=== PATIENT | male | born 1975 | race Caucasian/White ===

== ENCOUNTER 2022-06-29 10:31 | Outpatient (CLI) | payer OTHER ==
[2022-06-29 22:06] VITALS: BP 100/60
--- NOTE | 2022-06-29 22:06 | SLEEP CARE CONSULTATION ---
Information from patient questionnaire entered by Anais Enrique. I have reviewed and concur with the information entered by Anais Enrique. This document represents the service I personally performed and the decisions made by me, Geraldine Joy MD, [facility]. History of Present Illness Service Date and Time: 06/29/2022 1031 Reason for Visit: New patient Chief Complaint: reports: Insomnia, Unrefreshed sleep, Snoring, Excessive daytime sleepiness, Observed pauses in breathing, Fatigue, Frequent awakenings at night Date of Onset: YRS Usual bedtime: 10PM Time it takes to fall asleep: 30MIN DRUG ASSISTED Snores at night: Yes Observed to quit breathing while asleep: Yes Sleeps alone due to snoring: No Number of times waking at night: 1 Reasons for waking at night: reports: Bathroom, Other (UNKOWN) Toss, Turn, or Twitch while sleeping: Yes Recalls having dreams: No Usually gets out of bed at: 645AM Feels refreshed in the morning: Yes Morning headache: No Sleepy or fatigued during the day: Yes Ever fallen asleep while driving: No Takes day naps: No Dreams during day naps: No Prior sleep studies: No Additional HPI information: I had the pleasure of seeing Dr. Alfonso today regarding the possibility of him having a sleep disorder. As you know, he is a 46-year-old gentleman who complains of insomnia, loud snore, observed apneas, unrefreshed sleep, persistent fatigue, and excessive daytime sleepiness. The patient tells me that he normally goes to bed around 10 pm, and it takes him approximately 30 minutes to fall asleep. He takes clonazepam almost nightly. He has been told that he snores loudly and irregularly at night. He has also been observed to stop breathing in his sleep. His bed partner. He can recall waking up on the average of 1 time during the night. Most of the time he wakes up because of having to use the bathroom. He has never awakened because of his own snoring, choking, or having to gasp for air. There is not a lot of tossing and turning in his sleep. He reports having somniloquy (sleep talking) and somnambulism (sleep walking). Generally, he can recall having dreams. In the morning he usually gets up out of the bed around 6:45 a.m. not feeling refreshed nor rested. He usually does not have a morning headache. During the day he complains of feeling sleepy and fatigued. However, his score on [place] Sleep iness Scale is only 5 out of 24. He never has fallen asleep while driving nor has had any accident due to sleepiness. He usually does not take naps during the day. He denies having impaired concentration during the day. No restless leg syndrome symptoms. - Parasomnia Symptoms Ever been unable to move upon waking from sleep: No Walks in sleep: Yes Talks in sleep: Yes Ever acted out dreams in sleep: Yes Ever felt weak in the knees when startled or emotional: No Bothered by creepy, crawly, restless sensations in legs: No Problems with memory or concentration: No Subjective Initial [place] Sleepiness Scale score: 5 (06-26-22) Past Medical History Past Medical History: reports: Anxiety Social History The patient's occupation is a AM. Patient is and lives in . Have you smoked in the past 12 months: No Alcohol use: Yes Alcohol amount and frequency: 1 DRINK DAILY Caffeine use: Yes Caffeine amount and frequency: 16OZ DAILY Family History Family history of sleep disordered breathing: Yes Family Hx Sleep Apnea: Sibling: Snoring, Sleep apnea - Treated Allergies and Home Medications Known drug allergies: No Drug allergies reviewed: Yes Home medication list reviewed: Yes Review of Systems Cardiovascular: denies: high blood pressure, palpitations, chest pain, irregular heart rate or pulse, leg or foot swelling, have to sleep sitting up, other Respiratory: denies: shortness of breath, wheeze, sputum production, chronic cough, other Gastrointestinal: denies: heartburn, difficulty swallowing, nausea, vomitting, diarrhea, abdominal pain, other Urinary: denies: incontinence, frequency, urgency, impotence, other Neurological: denies: headaches, seizure, head trauma, disorientation, speech dysfunction, gait or balance problems, fainting or unconsciousness, other Psychiatric: reports: anxiety Ear/Nose/Throat: denies: nasal congestion, sinus problems, nose bleeds, dry mouth/throat, hoarseness, injury to nose, tonsillectomy, wisdom teeth removed, other Endocrine: denies: thyroid disease, history of goiter, sluggishness, too hot or cold, excessive thirst, increased appetite, increased urination, unexplained weakness, other Musculoskeletal: denies: joint pain, neck pain, back pain, joint swelling, muscle pain or cramping, mobility problems, other Immunologic: denies: sneezing, rash, itching, allergies to food or environment, other Physical Exam Vital signs obtained and entered by: ANAIS Hector MA Blood Pressure: 100/60 (LEFT ARM) Cuff size: regular Heart Rate: 72 O2 Saturation: 98 Height: 5 ft 10 in Weight: 192 lb 9.6 oz Body Mass Index: 27.6 BMI Classification: Overweight Neck circumference: 16.5 Mood/affect: Normal HEENT: No craniofacial malformation Nostrils: patent to airflow Turbinates: normal Septum: midline Mouth and throat: narrow oropharynx Soft palate: normal Hard palate: normal Uvula: normal Uvula visualization: 50% Mallampati Class II Tongue: normal in size Tonsils: small Chin and jaw: normal size and position Neck: normal w/o lymphadenopathy or thyromegaly Heart: regular rate and rhythm Lungs: clear bilaterally Extremities: no edema or clubbing Neurologic: intact Impression and Plan IMPRESSION: 1. Obstructive Sleep Apnea-Hypopnea Syndrome, as suggested by history of loud and irregular snoring, observed cessation of breath while asleep, unrefreshed sleep, and daytime hypersomnolence. Narrow oropharynx is a common predisposing factor for obstructive sleep apnea-hypopnea syndrome. I recommend proceeding to polysomnography to confirm the diagnosis and to assess severity. I informed the patient of what the sleep studies involve and after some discussion, he agreed to proceed. Plan: 1. Schedule polysomnography and return in 1 to 2 weeks after the study to discuss result and initiate therapy. Follow up with Sleep Care in: 1-2 months Plan: in-lab PSG Visit Type: In Office Time Spent with Patient (minutes): 15 Provider Statement: I spent 100% of the Face to Face Visit with the patient with greater than 50% spent counseling the patient and coordination of care.
== END 2022-06-29 10:32 | disposition home or self-care (01) ==
LOC: SC 10:31
PROVIDERS: ATTEND Internal Medicine Pulmonary Disease
DX: R06.83 Snoring (principal); G47.10 Hypersomnia, unspecified; R06.81 Apnea, not elsewhere classified; G47.8 Other sleep disorders
CPT/HCPCS: 99202; 99212

== ENCOUNTER 2022-08-13 20:30 | Outpatient (CLI) | payer OTHER | END 2022-08-13 20:31 | disposition home or self-care (01) | LOC: SC 20:30 | PROVIDERS: ATTEND Internal Medicine Pulmonary Disease | DX: G47.33 Obstructive sleep apnea (adult) (pediatric) (principal); G47.61 Periodic limb movement disorder | CPT/HCPCS: 95810 ==

== ENCOUNTER 2022-08-28 12:54 | Outpatient (CLI) | payer OTHER ==
--- NOTE | 2022-08-28 13:25 | SLEEP CARE CONSULTATION ---
Information from patient questionnaire entered by Caro Enrique. I have reviewed and concur with the information entered by Caro Enrique. This document represents the service I personally performed and the decisions made by , Cindy Leiva ARNP. History of Present Illness Service Date and Time: 08/28/2022 1254 Initial [place] Sleepiness Scale score: 5 (06-26-22) Current [place] Sleepiness Scale score: 7 (08/28/22) Additional HPI information: WILIAM AUGUSTINE returns for follow up and results of the recently performed polysomnography. I explained the pathophysiology behind obstructive sleep apnea. We then spent quite a bit of time discussing different treatment options. For mild obstructive sleep apnea, surgery and oral appliance are alternatives to nasal CPAP therapy but in moderate or severe cases, nasal CPAP is the most effective and reliable treatment. Because apnea is primarily in supine position, then positional management therapy could be effective. Methods discussed such as positioning with pillows, using a T-shirt with tennis balls in the back, or commercial products that have a pillow format on back to prevent supine sleep. I reviewed the impact of weight changes on sleep apnea and strongly recommended losing weight. Patient was cautioned about risks of drowsy driving until sleepiness symptoms resolve. Sleep Study - Results Type of Sleep Study: Home sleep study (COMPLETED 08/13/22) Prior sleep studies: No Polysomnography/Home Sleep Study results: IMPRESSION: The quality of the study is good. The patient had slightly reduced sleep efficiency. The sleep architecture was abnormal for sleep fragmentation and reduced amount of time spent in REM sleep. Respiratory monitoring showed mild obstructive sleep apnea-hypopnea (AHI = 6.0) associated with frequent arousals, oxyhemoglobin desaturation and mild hypoxia (an oxygen saturation of 83%). The respiratory events occurred almost exclusively during supine sleep (supine AHI = 39.6; non-supine = 2.11). Snore was very loud in intensity. There was mild periodic leg movement of sleep not contributing to the sleep fragmentation. Cardiac rhythm was normal sinus rhythm without significant arrhythmia. No abnormal behavior (parasomnia) observed during the night. Allergies and Home Medications Known drug allergies: No Drug allergies reviewed: Yes Home medication list reviewed: Yes (no changes) Allergy and home medication list: Allergies No Known Drug Allergies Allergy Review of Systems Review of systems same as previous: Yes (no changes) Physical Exam Vital signs obtained and entered by: CARO Hector MA Blood Pressure: 102/68 (LEFT ARM) Cuff size: regular Heart Rate: 79 O2 Saturation: 96 Height: 5 ft 10 in Weight: 199 lb 9.6 oz Body Mass Index: 28.6 BMI Classification: Overweight Impression and Plan 1. Obstructive Sleep Apnea-Hypopnea Syndrome, mild, with lowest oxygen saturation of 83%. Obviously this is the cause of the patients symptoms of unrefreshed sleep, and excessive daytime sleepiness. Positive pressure therapy could benefit anxiety. Since patients apnea is primarily in supine position, patient advised that he could try positional therapy and he agreed with plan. He is also advised to lose weight as this will reduce snoring and apnea. Follow up is scheduled for one month to check effectiveness. 2. Hypoxemia, mild, with a an oxygen saturation of 83% and 1.4 minutes spent under 90%. His baseline oxygen saturation was normal with an average oxygen saturation of 95%. 3. Periodic limb movement, mild, that did not fragment patients sleep. Periodic limb movement of sleep (PLMS) is characterized by episodes of repetitive limb movements that occur during sleep and usually involve the lower limbs. The etiology is unknown. Caffeine can aggravate PLMS and should be avoided. Sleep hygiene methods can also improve sleep as well as lifestyle changes such as regular exercise. Patient was advised that no treatment is needed at this time. If symptoms increase, then further evaluation is indicated. * Positional therapy * Attempt to lose weight. * Avoid supine sleep * Return in one to two months. I will assess response to therapy at that time. Counseling Topics: Sleeping position, Weight loss health impact Visit Type: In Office Time Spent with Patient (minutes): 20 Provider Statement: I spent 100% of the Face to Face Visit with the patient with greater than 50% spent counseling the patient and coordination of care.
[2022-08-28 13:50] VITALS: BP 102/68
== END 2022-08-28 12:55 | disposition home or self-care (01) ==
LOC: SC 12:54
PROVIDERS: ATTEND Nurse Practitioner Family
DX: G47.33 Obstructive sleep apnea (adult) (pediatric) (principal); R09.02 Hypoxemia; G47.61 Periodic limb movement disorder; E66.3 Overweight; Z68.28 Body mass index [BMI] 28.0-28.9, adult
CPT/HCPCS: 99212; 99213

== ENCOUNTER 2022-10-20 16:01 | Outpatient (CLI) | payer OTHER ==
--- NOTE | 2022-10-20 16:33 | Sleep Patient Instructions ---
Sleep Center Visit Summary - Patient Visit Information Reason for Visit: Two month follow up for Positional Therapy - Patient Instructions Additional Instructions: You were here for follow up of Positional therapy. You will be started on CPAP therapy with pressure at 4-15 cmH2O. Please let us know if the pressure change is uncomfortable and we can make further adjustments of the pressure. You should follow up with sleep care one month after you obtain new CPAP. You may contact us sooner for any questions or concerns. - Clinic Information Contact: [facility] [address] [place] [id number] [email or web address] T: [phone]
--- NOTE | 2022-10-20 16:42 | SLEEP CARE CONSULTATION ---
Information from patient questionnaire entered by Anais Enrique. I have reviewed and concur with the information entered by Anais Enrique. This document represents the service I personally performed and the decisions made by me, Cindy Leiva ARNP. History of Present Illness Service Date and Time: 10/20/2022 1601 Previous diagnosis: Mild, Obstructive Sleep Apnea-Hypopnea Syndrome AHI: 6 (in 07/2022) Reason for follow up: other (2 MONTH F/U POSITIONAL THERAPY ) Prior sleep studies: No Type of Sleep Study: Home sleep study (COMPLETED 08/13/22) HPI additional information: WILIAM AUGUSTINE was diagnosed to have mild, AHI 6, obstructive sleep apnea- hypopnea syndrome and returned today for Positional therapy two month follow-up. Sleep Study - Results Type of Sleep Study: Home sleep study (COMPLETED 08/13/22) Prior sleep studies: No CPAP Compliance Data Compliance data discussion: He states he does have difficulty maintaining non-supine sleep. He feels that when he turns onto his back is when he is waking up. He is not sure he can continue with positional therapy for his sleep apnea. Subjective On therapy, patient: denies: sleeping better, more rested overall, drowsiness while driving Initial [place] Sleepiness Scale score: 5 (06-26-22) Current [place] Sleepiness Scale score: 3 (10/20/22) Allergies and Home Medications Known drug allergies: No Drug allergies reviewed: Yes Home medication list reviewed: Yes (no changes) Allergy and home medication list: Allergies No Known Drug Allergies Allergy (Verified 10/19/22 10:18) Review of Systems Review of systems same as previous: Yes (no changes) Physical Exam Vital signs obtained and entered by: ANAIS Hector MA Blood Pressure: 126/78 (LEFT ARM) Cuff size: regular Heart Rate: 82 O2 Saturation: 98 Height: 5 ft 10 in Weight: 190 lb 3.2 oz Body Mass Index: 27.3 BMI Classification: Overweight Impression and Plan 1. Obstructive Sleep Apnea-Hypopnea Syndrome, mild. His apnea is severe when he sleeps supine. He is not sure he can maintain the positional therapy and would like to change to CPAP. Positive pressure therapy could benefit his anxiety. He is also moving to [place] at the end of November. We can get him started and he will need to do more followups with new sleep provider after his move. He voiced understanding. The patient will be started on nasal autoCPAP therapy with pressure set at 4-15 cmH2O. Compliance guidelines also reviewed. A copy of compliance guidelines will be given for reference at check out. Because the apnea is more severe supine, I instructed to avoid sleeping supine using pillow positioning until able to start CPAP use. 2. Overweight, unspecified. Currently patients BMI is 27.3. Obesity increases the risk of apnea, CPAP pressure requirements and overall health risks especially cardiovascular and diabetes. Thus patient is advised to lose weight. * Nasal auto CPAP therapy, pressure at 4-15 cm H2O. * Attempt to lose weight. * Avoid supine sleep until using CPAP. * Return one month after CPAP obtained. I will assess response to therapy and compliance at that time. Counseling Topics: Sleeping position, Weight loss health impact Visit Type: In Office Time Spent with Patient (minutes): 21 Provider Statement: I spent 100% of the Face to Face Visit with the patient with greater than 50% spent counseling the patient and coordination of care.
[2022-10-20 17:02] VITALS: BP 126/78
== END 2022-10-20 16:02 | disposition home or self-care (01) ==
LOC: SC 16:01
PROVIDERS: ATTEND Nurse Practitioner Family
DX: G47.33 Obstructive sleep apnea (adult) (pediatric) (principal); E66.3 Overweight; Z68.27 Body mass index [BMI] 27.0-27.9, adult
CPT/HCPCS: 99212; 99213